=== PATIENT | female | born 1945 | race Caucasian/White ===

== ENCOUNTER 2021-05-28 13:43 | Outpatient (CLI) | payer OTHER | END 2021-05-28 13:44 | disposition home or self-care (01) | LOC: DTY/OP 13:43 | PROVIDERS: ATTEND Family Medicine | DX: Z91.018 Allergy to other foods (principal) | CPT/HCPCS: 97802 ==

== ENCOUNTER 2021-06-25 14:04 | Outpatient (CLI) | payer OTHER | END 2021-06-25 14:05 | disposition home or self-care (01) | LOC: DTY/OP 14:04 | PROVIDERS: ATTEND Family Medicine | DX: Z91.018 Allergy to other foods (principal) | CPT/HCPCS: 97803 ==

== ENCOUNTER 2021-08-06 12:05 | Outpatient (CLI) | payer OTHER | END 2021-08-06 12:06 | disposition home or self-care (01) | LOC: DTY/OP 12:05 | PROVIDERS: ATTEND Family Medicine | DX: Z91.018 Allergy to other foods (principal) | CPT/HCPCS: 97803 ==